=== PATIENT | male | born 1975 | race Caucasian/White ===

== ENCOUNTER 2017-03-11 10:43 | Inpatient (IN) | payer OTHER ==
[~2017-03-11] VITALS: Ht 182.9 cm; Wt 93.9 kg
[2017-03-12 20:00] VITALS: BP 139/97
--- NOTE | 2017-03-12 20:00 | NUR ---
INTAKE ASSESSMENT PT ASSESSED IN INTAKE.PT IS A/O X 4,AMBULATES WITH A STEADY GAIT,SPEECH IS CLEAR,V/S ARE STABLE.NO S/S OF ACUTE DISTRESS NOTED.PT IS IN A STABLE CONDITION TO PROCEED TO [facility] [place].
[2017-03-12] MEDS ORDERED: ACETAMINOPHEN 325 MG TABLET PO PRN (20:15)
[2017-03-12] MEDS ORDERED: ONDANSETRON ODT 4 MG TAB.RAPDIS SL PRN (20:15)
[2017-03-12] MEDS ORDERED: LORAZEPAM 1 MG TABLET PO PRN ×2 (20:15)
[2017-03-12] MEDS ORDERED: diphenhydrAMINE 50 MG CAPSULE PO PRN (20:15)
[2017-03-12] MEDS ORDERED: LOPERAMIDE HCL 2 MG CAPSULE PO PRN ×2 (20:15)
[2017-03-12] MEDS ORDERED: MAGNESIUM HYDROXIDE 30 ML LIQUID UDC PO PRN (20:15)
[2017-03-12] MEDS ORDERED: hydrALAZINE HCL 50 MG TABLET PO PRN (20:15)
[2017-03-12] MEDS ORDERED: MIRALAX 17 GM POWD.PACK PO PRN (20:15)
[2017-03-12] MEDS ORDERED: LORAZEPAM 2 MG/1 ML VIAL IM PRN (20:15)
[2017-03-12] MEDS ORDERED: MAG HYDROX/AL HYDROX/SIMETH 30 ML LIQUID UDC PO PRN (20:15)
[2017-03-12] MEDS ORDERED: ONDANSETRON 4 MG/2 ML VIAL IM PRN (20:15)
[2017-03-12] MEDS ORDERED: THIAMINE HCL 200 MG/2 ML VIAL IM ONE (20:15)
--- NOTE | 2017-03-12 21:00 | NUR ---
ADMISSION NOTE HT - 6 FEET; WT - 207 POUNDS. B/P=139/87, T=97.8, P=88, R=16, O2 SAT=95%. CIWA=7. Admitting 41 y/o male to [facility] for Alcohol dependency under the care of ..Pt has been drinking a fifth of Vodka for 7 years,on a daily basis,except for 45 days between July and August 2016 which was his longest period of sobriety.He also has been smoking a pack of cigarettes for a long time,using nicotine patches off and on in an attempt to quit smoking.PMH of Anxiety,Depression,Hypertension and back pain due to herniated disc.No history for seizures noted.Pt is A/O X 4,has NKA to food or medications,placed on a regular diet and full code status.Skin is intact,warm and dry to touch;respirations are even and non labored,no SOB noted; abdomen is soft and non tender with bowel sounds present x 4.No c/o diarrhea or constipation noted.Pt is c/o mild headache,anxiety,nausea,feeling hot and cold.Pt does not have a PCP.Education provided on alcohol use disorder,Hepatitis C,smoking cessation, fall prevention and seizures.Pt oriented to room and unit,care plan and safety checks initiated,snacks provided,PO fluids encouraged as tolerated.All safety measures in place per hospital policy;bed locked in the lowest position,side rails up x 2,call light within reach,will continue to monitor for safe detox. TREATMENT - [facility] FOR 2 WEEKS FROM July TO August 2016.
--- NOTE | 2017-03-12 21:16 | NUR ---
PRN MED- PRN ATIVAN 1 MG PO GIVEN ORDERED FOR CIWA OF 7.WILL MONITOR.
[2017-03-12] MEDS ORDERED: LORAZEPAM 1 MG TABLET ONE ×2 (21:25→23:00)
[2017-03-12] MEDS ORDERED: THIAMINE HCL 200 MG/2 ML VIAL ONE (21:25)
[2017-03-12 21:29] LABS: BASOPHILS # (AUTO) 0.1 K/uL (0.0-8.0); BASOPHILS % (AUTO) 1.1 % (0.0-2.0); EOSINOPHILS # (AUTO) 0.1 K/uL (0.0-0.7); EOSINOPHILS % (AUTO) 2.7 % (0.0-7.0); HEMATOCRIT 47.6 % (40-50); HEMOGLOBIN 16.1 G/DL (14.0-18.0); LYMPHOCYTES # (AUTO) 2.2 K/UL (0.8-4.8); LYMPHOCYTES % (AUTO) 47.3 % (20.5-51.5); MEAN CORPUSCULAR HEMOGLOBIN 35.3 UUG (27.0-31.0); MEAN CORPUSCULAR HGB CONC 34 g/dL (32.0-37.0); MEAN CORPUSCULAR VOLUME 104.3 FL (82.0-92.0); MONOCYTES # (AUTO) 0.4 K/UL (0.1-1.30); MONOCYTES % (AUTO) 9.4 % (0.0-11.0); NEUTROPHILS # (AUTO) 1.9 K/UL (1.8-8.9); NEUTROPHILS % (AUTO) 39.5 % (38.5-71.5); PLATELET COUNT (AUTO) 125 K/UL (150-450); RED BLOOD CELL COUNT(AUTO) 4.57 MIL/UL (4.7-6.1); WHITE BLOOD COUNT (AUTO) 4.7 K/UL (4.0-11.2)
[2017-03-12 21:41] LABS: *AMPHETAMINE, URINE NEGATIVE (NEGATIVE); *BARBITURATE, URINE NEGATIVE (NEGATIVE); *CANNABINOID, URINE NEGATIVE (NEGATIVE); *COCCAINE, URINE NEGATIVE (NEGATIVE); *OPIATE, URINE NEGATIVE (NEGATIVE); *PHENCYCLIDINE SCREEN,URINE NEGATIVE (NEGATIVE)
[2017-03-12 21:42] LABS: BILIRUBIN,TOTAL 1.3 mg/dL (0.2-1.0); CREATININE 0.9 mg/dL (0.6-1.3); MAGNESIUM 1.5 mg/dL (1.8-2.4); TOTAL PROTEIN, SERUM 8.7 g/dL (6.4-8.2)
[2017-03-12] MEDS ORDERED: LORAZEPAM 1 MG TABLET PO ONE ×2 (22:00→23:00)
--- NOTE | 2017-03-12 22:16 | NUR ---
PRN F/U PT VERBALIZES A DECREASE IN SYMPTOMS.CIWA=4.WILL MONITOR.
[2017-03-12] MEDS ORDERED: MAGNESIUM OXIDE 400 MG TABLET PO ONE (23:00)
[2017-03-12] MEDS ORDERED: POTASSIUM CHLORIDE 20 MEQ TAB.PRT.SR PO ONE (23:00)
[2017-03-12] MEDS ORDERED: POTASSIUM CHLORIDE 20 MEQ TAB.PRT.SR ONE (23:06)
[2017-03-12] MEDS ORDERED: MAGNESIUM OXIDE 400 MG TABLET ONE (23:07)
[2017-03-12] MEDS ORDERED: NAPR500T6 PO (23:08)
[2017-03-12] MEDS ORDERED: NICO1PAT25 TP (23:09)
[2017-03-13] VITALS: BP 139/94
[2017-03-13] MEDS: CLONIDINE HCL 0.1 MG TABLET PO PRN (01:48)
[2017-03-13] MEDS: IBUPROFEN 400 MG TABLET PO PRN (01:48)
--- NOTE | 2017-03-13 01:50 | NUR ---
PRN MEDS PRN MOTRIN,CLONIDINE AND BENADRYL GIVEN ORDERED FOR HEADACHE,ANXIETY/COLD SWEATS AND INSOMNIA RESPECTIVELY.WILL MONITOR FOR EFFECTIVENESS.
[2017-03-13] MEDS ORDERED: diphenhydrAMINE 50 MG CAPSULE ONE (01:52)
[2017-03-13] MEDS ORDERED: IBUPROFEN 400 MG TABLET ONE (01:52)
[2017-03-13] MEDS ORDERED: CLONIDINE HCL 0.1 MG TABLET ONE (01:52)
--- NOTE | 2017-03-13 02:50 | NUR ---
PRN MEDS ARE MINIMALLY EFFECTIVE,PAIN AND ANXIETY RELIEVED,PT STILL AWAKE TRYING TO SLEEP.
[2017-03-13 04:00] VITALS: BP 140/106
--- NOTE | 2017-03-13 06:50 | NUR ---
END OF SHIFT Pt is a 41 y/o male admitted for Alcohol dependency.PMH of Anxiety,Depression,Hypertension and back pain due to herniated disc.No history for seizures noted.Pt is A/O X 4,has NKA to food or medications,placed on a regular diet and full code status.Last CIWA was 4 at 0400. PRN Ativan,Motrin,Clonidine and Benadryl were given and were effective.Fall and seizure precautions observed a all time.Pt slept intermittently for 2 hours only,fluid intake was 605 mls,voided x 2.All safety measures in place per hospital policy;bed locked in the lowest position,side rails up and padded x 2,call light within reach,will continue to monitor.
--- NOTE | 2017-03-13 07:30 | NUR ---
START OF SHIFT NOTE Pt is a 41 yr old male, A&Ox3. Pt was admitted on 03/12/17 for ETOH dependence and is to start on 5 day Ativan taper as ordered. Pt received Ativan PRN, Clonidine PRN, Motrin PRN, and Benadryl PRN during the night. Medication was effective. Pt slept for 5 hrs. Last CIWA score was 6. Pt is observed with increase anxiety m/b difficultly staying still. Skin is intact, warm and moist to touch. Fine tremors are observed. Pt is c/o nausea but denies any episodes of vomiting. Encouraged increase fluid intake. Will continue to f/u with medication as ordered. Safety precautions observed. Call light is within reach. Will continue to monitor.
[2017-03-13 08:00] VITALS: BP 127/93
[2017-03-13] MEDS: THIAMINE HCL 100 MG TABLET PO SCH (08:18)
[2017-03-13] MEDS: FOLIC ACID 1 MG TABLET PO SCH (08:18)
[2017-03-13] MEDS: LORAZEPAM 1 MG TABLET PO SCH ×4 (08:18→20:57)
[2017-03-13] MEDS: MULTIVITAMINS,THERAPEUTIC TABLET PO SCH (08:18)
--- NOTE | 2017-03-13 08:18 | NUR ---
PRN GIVEN Pt is c/o nausea. no episodes of vomiting was reported. Zofran 4mg SL PRN was given as ordered. Will continue to monitor.
--- NOTE | 2017-03-13 08:18 | NUR ---
PRN RE-ASSESSMENT Zofran PRN was effective. Pt denies any n/v. Encouraged increase fluid intake. Will continue to monitor.
[2017-03-13] MEDS ORDERED: AMLODIPINE 5 MG TABLET PO SCH (09:00)
[2017-03-13] MEDS ORDERED: TUBERCULIN,PURIF.PROT.DERIV. 5 TU/0.1 ML TEST ID ONE (09:00)
[2017-03-13 12:00] VITALS: BP 146/98
[2017-03-13 16:00] VITALS: BP 159/90
--- NOTE | 2017-03-13 19:10 | NUR ---
END OF SHIFT Pt is a 41 yr old male, A&Ox3. Pt was admitted on 03/12/17 for ETOH dependence and is on 5 day Ativan taper as ordered. Pt received Zofran PRN for nausea. Medication was effective. Last CIWA score was 6 at 1600. Pt has been observed with increase anxiety m/b difficulty staying still. Skin is intact, warm and moist to touch. Fine tremors are observed. Encouraged increase fluid intake. Pt was cooperative with care and medication regimen. Safety precautions observed. Call light is within reach.
--- NOTE | 2017-03-13 19:30 | NUR ---
START OF SHIFT Pt is a 41 y/o male admitted for Alcohol dependency.PMH of Anxiety,Depression,Hypertension and back pain due to herniated disc.No history for seizures noted.Pt is A/O X 4,has NKA , on a regular diet and full code status.Last CIWA was 6. Continues to be on Ativan taper as ordered.No A/R noted.Fall and seizure precautions observed a all time.Pt appears somewhat anxious on approach.no c/o pain noted.All safety measures in place per hospital policy;bed locked in the lowest position,side rails up and padded x 2,call light within reach,will continue to monitor.
[2017-03-13 20:00] VITALS: BP 131/97
[2017-03-13] MEDS: GABAPENTIN 300 MG CAPSULE PO SCH (20:57)
[2017-03-14] VITALS: BP 135/97
[2017-03-14 04:00] VITALS: BP 138/105
--- NOTE | 2017-03-14 06:43 | NUR ---
END OF SHIFT Pt is a 41 y/o male admitted for Alcohol dependency.PMH of Anxiety,Depression,Hypertension and back pain due to herniated disc.No history for seizures noted.Pt is A/O X 4,has NKA , on a regular diet and full code status.Last CIWA was 4. Continues to be on Ativan taper as ordered.No A/R noted.Stated that Ativan is helping him.No PRN meds given,Pt slept intermittently for 4 hrs,fluid intake was 2743 mls,voided x 4,b/m x 1.All safety measures in place per hospital policy;bed locked in the lowest position,side rails up and padded x 2,call light within reach,will continue to monitor.
[2017-03-14 07:46] LABS: BILIRUBIN,DIRECT 0.5 mg/dL (0.0-0.2); BILIRUBIN,TOTAL 2.4 mg/dL (0.2-1.0); MAGNESIUM 1.5 mg/dL (1.8-2.4); POTASSIUM 3.6 mmol/L (3.5-5.1); TOTAL PROTEIN, SERUM 8.1 g/dL (6.4-8.2)
--- NOTE | 2017-03-14 07:54 | NUR ---
BEGINNING OF SHIFT Patient endorsement report received from night assistant nurse, all pertinent information discussed. Patient is a 41 year old male with admitting Dx: etoh dependence. Patient currently With ongoing 5 day ativan taper as ordered, well tolerated, no ASE noted. Patient slept for 4 hours. Received no PRN medications. Patient with last ciwa score of: 4. Patient received awake, alert and oriented x4, educated regarding plan of care for the day and medication regimen with good verbal understanding. Fall and seizure precautions observed. Safety measures in place. will continue to monitor closely.
[2017-03-14 08:16] VITALS: BP 132/97
[2017-03-14] MEDS: LORAZEPAM 1 MG TABLET PO SCH ×3 (08:24→21:52)
[2017-03-14] MEDS: THIAMINE HCL 100 MG TABLET PO SCH (08:25)
[2017-03-14] MEDS: GABAPENTIN 300 MG CAPSULE PO SCH ×2 (08:25→21:51)
[2017-03-14] MEDS: AMLODIPINE 10 MG TABLET PO SCH (08:25)
[2017-03-14] MEDS: FOLIC ACID 1 MG TABLET PO SCH (08:25)
[2017-03-14] MEDS: MULTIVITAMINS,THERAPEUTIC TABLET PO SCH (08:25)
--- NOTE | 2017-03-14 08:25 | NUR ---
PRN ZOFRAN patient noted with intermittent nausea, and dry heave. no episodes of vomiting noted, patient was administered Zofran injection as ordered, will monitor effectiveness of medication. Injection well tolerated.
--- NOTE | 2017-03-14 08:55 | NUR ---
ZOFRAN REASSESSMENT Patient reports medication effective, no further episodes of nausea, no vomiting noted. will continue to monitor.
[2017-03-14 14:04] VITALS: BP 141/98
[2017-03-14] MEDS: CLONIDINE HCL 0.1 MG TABLET PO PRN (14:39)
--- NOTE | 2017-03-14 14:40 | NUR ---
PRN CLONIDINE Admistered clonidine for blood pressure of: 141/98, heart rate 112. Will monitor effectiveness of medication.
[2017-03-14] MEDS ORDERED: POTASSIUM CHLORIDE 20 MEQ TAB.PRT.SR PO ONE (15:00)
[2017-03-14] MEDS ORDERED: MAGNESIUM OXIDE 400 MG TABLET PO ONE (15:00)
[2017-03-14] MEDS ORDERED: METOPROLOL TARTRATE 25 MG TABLET PO ONE (15:30)
--- NOTE | 2017-03-14 15:40 | NUR ---
CLONIDINE REASSESSMENT One hour post administration patients bp: 138/88 heart rate 99, medication effective, will continue to monitor.
[2017-03-14] MEDS ORDERED: LORAZEPAM 1 MG TABLET PO PRN ×2 (16:30)
[2017-03-14 17:25] VITALS: BP 146/89
--- NOTE | 2017-03-14 18:58 | NUR ---
END OF SHIFT Patient alert and oriented x4, vital signs stable during shift. Patient compliant with therapeutic plan of care. Patient with admitting Dx:etoh dependence. Patient currently with ongoing Ativan taper, well tolerated, no ASE. Detox medication effective at reducing withdrawal symptoms. During shift patient with episode of elevated blood pressure, MD aware. 0900 assessment patient presented with: fine tremors, sweats, anxiety, mild head fullness, intermittent nausea with ciwa score of: 14; 1300 assessment patient presented with: moderate anxiety, fine tremors, sweating, and mild head fullness with ciwa score of: 11; 1700 assessment patient presented with: moderate anxiety, fine tremors and sweating, and mild head fullness with ciwa score of: 11. Patient was administered PRN: Clonidine, and Zofran during shift, medications were effective. Patient denies any SI/HI. Encouraged to attend group therapies/sessions to learn new coping skills to prevent relapse.Encouraged adequate PO fluid intake as tolerated. Safety measures in place. Call light kept with in reach. All needs met and rendered. Patient endorsed to night warehouse manager nurse, all pertinent information discussed.
--- NOTE | 2017-03-14 19:30 | NUR ---
START OF SHIFT Pt is a 41 y/o male admitted for Alcohol dependency.PMH of Anxiety,Depression,Hypertension and back pain due to herniated disc.No history for seizures noted.Pt is A/O X 4,has NKA , on a regular diet and full code status.Last CIWA was 11. Continues to be on Ativan taper as ordered and is tolerating well.No A/R noted.Fall and seizure precautions observed a all time.Pt appears somewhat anxious on approach,focused on smoking;no c/o pain noted.All safety measures in place per hospital policy;bed locked in the lowest position,side rails up and padded x 2,call light within reach,will continue to monitor.
[2017-03-14 20:00] VITALS: BP 137/89
[2017-03-14] MEDS: METOPROLOL TARTRATE 25 MG TABLET PO SCH (21:51)
[2017-03-14] MEDS: TRAZODONE 50 MG TABLET PO PRN (21:52)
--- NOTE | 2017-03-14 21:54 | NUR ---
PRN TRAZODONE GIVEN ORDERED FOR C/O INSOMNIA.WILL MONITOR.
--- NOTE | 2017-03-14 23:00 | NUR ---
PRN F/U PRN TRAZODONE IS EFFECTIVE.PT IS RESTING IN BED WITH EYES CLOSED.NO S/S OF DISTRESS NOTED.
[2017-03-15] VITALS: BP 130/87
[2017-03-15 04:00] VITALS: BP 105/69
--- NOTE | 2017-03-15 06:46 | NUR ---
END OF SHIFT Pt is a 41 y/o male admitted for Alcohol dependency.PMH of Anxiety,Depression,Hypertension and back pain due to herniated disc.No history for seizures noted.Pt is A/O X 4,has NKA , on a regular diet and full code status.Last CIWA was 2 at 0400. Continues to be on Ativan taper as ordered and is tolerating well.No A/R noted.Fall and seizure precautions observed a all time.PRN Trazodone was given last night for insomnia with good effect.Pt slept 6 hours,consumed 950 mls of fluids,voided x 2; no c/o pain noted.All safety measures in place per hospital policy;bed locked in the lowest position,side rails up and padded x 2,call light within reach,will continue to monitor.
[2017-03-15 07:07] LABS: HEPATITIS B SURFACE AG Negative (Negative)
--- NOTE | 2017-03-15 07:32 | NUR ---
BEGINNING OF SHIFT Patient endorsement report received from third shift lieutenant nurse, all pertinent information discussed. Patient is a 41 year old male with admitting Dx: etoh dependence. Patient currently With ongoing 5 day Ativan taper as ordered, well tolerated, no ASE noted, patient scheduled to begin day: 3Patient slept for 6 hours. Received PRN: Trazodone as ordered, per third shift lieutenant medication effective. Patient with last ciwa score of: 6. Patient received awake, alert and oriented x4, educated regarding plan of care for the day and medication regimen with good verbal understanding. Fall and seizure precautions observed. Safety measures in place. will continue to monitor closely.
[2017-03-15 08:26] VITALS: BP 115/74
[2017-03-15] MEDS: AMLODIPINE 10 MG TABLET PO SCH (08:46)
[2017-03-15] MEDS: THIAMINE HCL 100 MG TABLET PO SCH (08:46)
[2017-03-15] MEDS: LORAZEPAM 1 MG TABLET PO SCH ×4 (08:46→22:34)
[2017-03-15] MEDS: FOLIC ACID 1 MG TABLET PO SCH (08:46)
[2017-03-15] MEDS: GABAPENTIN 300 MG CAPSULE PO SCH ×3 (08:46→22:34)
[2017-03-15] MEDS: MULTIVITAMINS,THERAPEUTIC TABLET PO SCH (08:46)
[2017-03-15] MEDS: METOPROLOL TARTRATE 25 MG TABLET PO SCH ×2 (08:49→22:35)
[2017-03-15 12:37] VITALS: BP 141/85
[2017-03-15] MEDS ORDERED: NICOTINE POLACRILEX 4 MG GUM-PK OF TEN BC PRN (13:00)
[2017-03-15 17:37] VITALS: BP 131/95
--- NOTE | 2017-03-15 19:00 | NUR ---
END OF SHIFT Patient alert and oriented x4, vital signs stable during shift. Patient compliant with therapeutic plan of care. Patient with admitting Dx:etoh dependence. Patient currently with ongoing Ativan taper, well tolerated, currently on day 3 of taper, no ASE. Detox medication effective at reducing withdrawal symptoms. 0900 assessment patient presented with: fine tremors, and anxiety with ciwa score of: 5; 1300 assessment patient presented with: fine tremors, and anxiety with ciwa score of: 4; 1700 assessment patient presented with: fine tremors and anxiety with ciwa score of: 4. Patient denies any SI/HI. Encouraged to attend group therapies/sessions to learn new coping skills to prevent relapse, noted attending and participating. Patient received no PRN medications during shift.Encouraged adequate PO fluid intake as tolerated. Safety measures in place. Call light kept with in reach. All needs met and rendered. Patient endorsed to hourly shift manager nurse, all pertinent information discussed.
[2017-03-15 20:10] VITALS: BP 136/92
[2017-03-15] MEDS: IBUPROFEN 400 MG TABLET PO PRN (22:34)
[2017-03-15] MEDS: TRAZODONE 50 MG TABLET PO PRN (23:35)
--- NOTE | 2017-03-15 23:35 | NUR ---
PRN Trazodone Pt c/o inability to sleep and requested PRN Trazodone. Medication given and tolerated well. Will reassess within 1 HR. Will continue to monitor.
[2017-03-16 00:10] VITALS: BP 131/84
--- NOTE | 2017-03-16 00:30 | NUR ---
PRN Trazodone Reassessment Medication effective. Pt is resting well in bed. No s/s of ASE/distress noted at this time. Respirations even and unlabored. Will continue to monitor.
[2017-03-16 04:47] VITALS: BP 128/82
--- NOTE | 2017-03-16 06:58 | NUR ---
End of shift note Pt is a 41 yo male, A+Ox4, presenting to [facility] for ETOH dependence. Pt has NKA, is on Full code status, and on Regular diet. Pt has HX of Anxiety, Depression, HTN, and Back pain. Pt is on Fall and Seizure precautions. Pt is on 5 day Ativan taper, tolerated well. Pt was given PRN Trazodone @2335. Pt slept for a total of 8 HRS. Last CIWA: 2 @0400. No s/s of distress noted at this time. Respirations even and unlabored. Will endorse to day shift nurse.
--- NOTE | 2017-03-16 07:03 | NUR ---
Start of Shift Endorsement received from nightshift nurse. Pt is a 41 y/o male admitted for alcohol dependence. Pt has been placed on a 5 day Ativan taper. Pt is tolerating the taper AEB CIWA 2 at 0400. Pt received PRN Trazodone and Motrin for reports pain and insomnia. Pt reports sleeping 8 hours and feel rested. Hx of Anxiety, depression , HTN and chronic back pain. Full Code. VS WNL. PT is alert and oriented x4. Pt is in STABLE condition at this time. Remains compliant with medication and diet regimen. All needs have been met, All safety measures in place per hospital policy. Bed in lowest position, side rails up x2, call-light within reach. Will continue to monitor
[2017-03-16 08:00] VITALS: BP 125/85
[2017-03-16] MEDS: GABAPENTIN 300 MG CAPSULE PO SCH ×3 (08:22→20:57)
[2017-03-16] MEDS: FOLIC ACID 1 MG TABLET PO SCH (08:22)
[2017-03-16] MEDS: THIAMINE HCL 100 MG TABLET PO SCH (08:22)
[2017-03-16] MEDS: MULTIVITAMINS,THERAPEUTIC TABLET PO SCH (08:22)
[2017-03-16] MEDS: NICOTINE 14 MG/24HR PATCH TD SCH (08:23)
[2017-03-16] MEDS: LORAZEPAM 1 MG TABLET PO SCH ×3 (08:23→20:57)
[2017-03-16] MEDS: AMLODIPINE 10 MG TABLET PO SCH (08:23)
[2017-03-16] MEDS ORDERED: KETOROLAC TROMETHAMINE 30 MG INJ IM PRN (11:30)
[2017-03-16] MEDS ORDERED: NAPROXEN 500 MG TABLET PO PRN (11:30)
[2017-03-16 12:00] VITALS: BP 116/90
[2017-03-16 16:54] VITALS: BP 136/88
--- NOTE | 2017-03-16 18:49 | NUR ---
End of Shift Endorsement given to nightshift nurse. Pt is a 41 y/o male admitted for alcohol dependence. Pt has been placed on a 5 day Ativan taper. Pt is tolerating the taper AEB CIWA 4 at 1600. Pt received a PRN Toradol for lower back pain of 8/10, medication was effective AEB pt reporting 3/10 pain upon re-assessment. Pt participated in groups and activities. Pt reports readiness for sobriety. Educated pt on medication s/e and diet regimen. Intake: 3260ml, Void x5, BM x1. Hx of Anxiety, depression , HTN and chronic back pain. Full Code. VS WNL. PT is alert and oriented x4. Pt is in STABLE condition at this time. Remains compliant with medication and diet regimen. All needs have been met, All safety measures in place per hospital policy. Bed in lowest position, side rails up x2, call-light within reach. Will continue to monitor
--- NOTE | 2017-03-16 19:06 | NUR ---
Start of shift note Received report from day shift nurse. Pt is a 41 yo male, A+Ox4, presenting to [facility] for ETOH dependence. Pt has NKA, is on Full code status, and on Regular diet. Pt has HX of Anxiety, Depression, HTN, and Back pain. Pt is on Fall and Seizure precautions. Pt is on 5 day Ativan taper, tolerated well. No s/s of distress noted at this time. Respirations even and unlabored. Will continue to monitor.
[2017-03-16 20:08] VITALS: BP 126/93
[2017-03-16] MEDS: METOPROLOL TARTRATE 25 MG TABLET PO SCH (20:56)
[2017-03-16] MEDS: TRAZODONE 50 MG TABLET PO PRN (23:40)
--- NOTE | 2017-03-16 23:40 | NUR ---
PRN Trazodone Pt c/o inability to sleep and requested PRN Trazodone. Medication given and tolerated well. Will reassess within 1 HR. Will continue to monitor.
[2017-03-17 00:07] VITALS: BP 129/89
[2017-03-17 04:05] VITALS: BP 127/86
--- NOTE | 2017-03-17 06:58 | NUR ---
End of shift note Pt is a 41 yo male, A+Ox4, presenting to [facility] for ETOH dependence. Pt has NKA, is on Full code status, and on Regular diet. Pt has HX of Anxiety, Depression, HTN, and Back pain. Pt is on Fall and Seizure precautions. Pt is on 5 day Ativan taper, tolerated well. Pt was given PRN Trazodone @2340. Pt slept for a total of 6 HRS. Last CIWA: 2 @0400. No s/s of distress noted at this time. Respirations even and unlabored. Will endorse to day shift nurse.
--- NOTE | 2017-03-17 07:30 | NUR ---
Start of shift note; Received report from night nurse. Patient is a 41 year old male admitted on 03/12/17 for ETOH dependence. Patient reported history of anxiety, depression, hypertension, back pain. Patient was placed on a 5 day Ativan taper, no adverse reactions noted. Patient slept for 6 hours. Patient's last CIWA is 2 at 0400. Patient is on fall and seizure precaution. Bed in lowest position, call light within reach. will continue to monitor patient.
[2017-03-17 08:00] VITALS: BP 122/84
[2017-03-17] MEDS: THIAMINE HCL 100 MG TABLET PO SCH (08:46)
[2017-03-17] MEDS: MULTIVITAMINS,THERAPEUTIC TABLET PO SCH (08:46)
[2017-03-17] MEDS: AMLODIPINE 10 MG TABLET PO SCH (08:46)
[2017-03-17] MEDS: GABAPENTIN 300 MG CAPSULE PO SCH ×3 (08:46→22:07)
[2017-03-17] MEDS: FOLIC ACID 1 MG TABLET PO SCH (08:46)
[2017-03-17] MEDS: NICOTINE 14 MG/24HR PATCH TD SCH (08:54)
[2017-03-17] MEDS ORDERED: LORAZEPAM 1 MG TABLET PO SCH ×2 (09:00)
[2017-03-17 12:00] VITALS: BP 134/93
[2017-03-17] MEDS ORDERED: METO25TA6 PO (13:25)
[2017-03-17] MEDS ORDERED: NAPR500T3 PO (13:25)
[2017-03-17] MEDS ORDERED: TRAZ-144 PO (13:25)
[2017-03-17] MEDS ORDERED: NICO1PAT25 TD (13:25)
[2017-03-17] MEDS ORDERED: GABA-534 PO (13:25)
[2017-03-17] MEDS ORDERED: AMLO10TA2 PO (13:25)
[2017-03-17 16:00] VITALS: BP 125/88
--- NOTE | 2017-03-17 18:14 | NUR ---
End of shift note; Patient is AOX4. Patient is a 41 year old male admitted on 03/12/17 for ETOH dependence. Patient reported history of anxiety, depression, hypertension, back pain. Patient was placed on a 5 day Ativan taper, no adverse reactions noted. Patient remained compliant with treatment plan. Medications were effective in reducing withdrawal symptoms. Met all needs.
--- NOTE | 2017-03-17 19:05 | NUR ---
Start of shift note Received report from day shift nurse. Pt is a 41 yo male, A+Ox4, presenting to [facility] for ETOH dependence. Pt has NKA, is on Full code status, and on Regular diet. Pt has HX of Anxiety, Depression, HTN, and Back pain. Pt is on Fall and Seizure precautions. Pt has completed 5 day Ativan taper, tolerated well, and is due for discharge tomorrow. No s/s of distress noted at this time. Respirations even and unlabored. Will continue to monitor.
[2017-03-17 20:11] VITALS: BP 118/81
[2017-03-17] MEDS: METOPROLOL TARTRATE 25 MG TABLET PO SCH (22:07)
[2017-03-18] MEDS: TRAZODONE 50 MG TABLET PO PRN (00:44)
--- NOTE | 2017-03-18 00:47 | NUR ---
PRN Trazodone and Naproxen Pt c/o inability to sleep and general body pain and requested PRN Trazodone and Naproxen. Medications given and tolerated well. Will reassess within 1 HR. Will continue to monitor.
[2017-03-18 00:58] VITALS: BP 122/76
--- NOTE | 2017-03-18 01:40 | NUR ---
PRN Trazodone and Naproxen Reassessment Medications effective. Pt is resting well in bed. No s/s of ASE/distress noted at this time. Respirations even and unlabored. Will continue to monitor.
[2017-03-18 04:22] VITALS: BP 118/79
--- NOTE | 2017-03-18 07:10 | NUR ---
End of shift note Pt is a 41 yo male, A+Ox4, presenting to [facility] for ETOH dependence. Pt has NKA, is on Full code status, and on Regular diet. Pt has HX of Anxiety, Depression, HTN, and Back pain. Pt is on Fall and Seizure precautions. Pt has completed 5 day Ativan taper, tolerated well, and is due for discharge today. Pt was given PRN Trazodone and Naproxen @0047. Pt slept for a total of 6 HRS. Last CIWA: 1 @0400. No s/s of distress noted at this time. Respirations even and unlabored. Will endorse to day shift nurse.
--- NOTE | 2017-03-18 07:39 | NUR ---
BEGINNING OF SHIFT Patient endorsement report received from manager night nurse, all pertinent information discussed. Patient is a 41 year old male with admitting Dx: etoh dependence. Patient completed 5 day Ativan taper as ordered, well tolerated, no ASE noted, Patient is scheduled to be discharged today, noted self motivated towards sobriety. Received PRN: Trazodone as ordered, per manager night medication effective. Patient slept for 6 hours. Patient with last ciwa score of: 1. Patient received awake, alert and oriented x4, educated regarding plan of care for the day and medication regimen with good verbal understanding. Fall and seizure precautions observed. Safety measures in place. will continue to monitor closely.
[2017-03-18 08:00] VITALS: BP 116/81
[2017-03-18 08:29] VITALS: BP 116/81
[2017-03-18] MEDS: AMLODIPINE 10 MG TABLET PO SCH (08:29)
[2017-03-18] MEDS: MULTIVITAMINS,THERAPEUTIC TABLET PO SCH (08:29)
[2017-03-18] MEDS: FOLIC ACID 1 MG TABLET PO SCH (08:29)
[2017-03-18] MEDS: THIAMINE HCL 100 MG TABLET PO SCH (08:29)
[2017-03-18] MEDS: GABAPENTIN 300 MG CAPSULE PO SCH (08:29)
[2017-03-18] MEDS: NICOTINE 14 MG/24HR PATCH TD SCH (08:30)
--- NOTE | 2017-03-18 10:30 | NUR ---
LISA Patient off the unit at 1030, prior to discharge patient was educated and provided with teaching regarding all discharge instructions with good verbal understanding. Patient discharged to able to change in stable condition, vital signs were stable. patient with no s/sx of withdrawal, last ciwa score of: 0. Patient noted self motivated towards sobriety. All scheduled due medications were administered as ordered, prior to discharge, well tolerated. discharge instructions, prescriptions and home medications were place din personal duffel bag. patient off the unit at 1030.
== END 2017-03-18 10:30 | disposition other institution (70) | DRG 895 ==
LOC: SRC 03-12 19:04
PROVIDERS: ADMIT Internal Medicine; ATTEND Internal Medicine
PROC: HZ2ZZZZ Detoxification Services for Substance Abuse Treatment (ICD-10-PCS; principal; 2017-03-12)
PROC: HZ41ZZZ Group Counseling for Substance Abuse Treatment, Behavioral (ICD-10-PCS; 2017-03-13)
PROC: HZ31ZZZ Individual Counseling for Substance Abuse Treatment, Behavioral (ICD-10-PCS; 2017-03-15)
DX: F10.230 Alcohol dependence with withdrawal, uncomplicated (principal); K85.20 Alcohol induced acute pancreatitis without necrosis or infection; K70.10 Alcoholic hepatitis without ascites; Y90.9 Presence of alcohol in blood, level not specified; F17.210 Nicotine dependence, cigarettes, uncomplicated; E83.42 Hypomagnesemia; G89.29 Other chronic pain; E87.6 Hypokalemia; Z83.3 Family history of diabetes mellitus; Z82.49 Family history of ischemic heart disease and other diseases of the circulatory system; Z81.1 Family history of alcohol abuse and dependence; I10 Essential (primary) hypertension; G47.00 Insomnia, unspecified; F41.9 Anxiety disorder, unspecified; Z20.5 Contact with and (suspected) exposure to viral hepatitis; F32.9 Major depressive disorder, single episode, unspecified; R73.9 Hyperglycemia, unspecified
CPT/HCPCS: 36415; 70030-TC; 80307; 83735; 85025; 86580; 86592; 86705; 86803; 87340; 87806; G0480; J1885; J2405; J3411; Q0162; Q0163